=== PATIENT | male | born 1940 | race Caucasian/White ===

== ENCOUNTER 2017-04-21 13:21 | Outpatient (CLI) | payer MEDICARE | END 2017-04-21 13:22 | disposition EMS.NT | LOC: EMS 13:21 | PROVIDERS: ATTEND Surgery | DX: S91.332A Puncture wound without foreign body, left foot, initial encounter (principal); W26.0XXA Contact with knife, initial encounter; Y92.009 Unspecified place in unspecified non-institutional (private) residence as the place of occurrence of the external cause ==

== ENCOUNTER 2017-04-22 00:28 | Outpatient (CLI) | payer MEDICARE | END 2017-04-22 00:29 | disposition critical access hospital (66) | LOC: EMS 00:28 | PROVIDERS: ATTEND Surgery | DX: S91.312A Laceration without foreign body, left foot, initial encounter (principal); W26.0XXA Contact with knife, initial encounter; Z79.01 Long term (current) use of anticoagulants | CPT/HCPCS: A0425; A0429 ==

== ENCOUNTER 2017-04-22 00:40 | Emergency (ER) | payer MEDICARE ==
--- NOTE | 2017-04-22 02:12 | ED Physician Documentation ---
PD HPI LOWER EXT INJURY - Stated complaint Stated Complaint: FOOT WOUND - Chief complaint Chief Complaint: Laceration - History obtained from History obtained from: Patient - History of Present Illness PD HPI LOW EXT INJURY LOCATION: Left Type of injury: Laceration Where injury occurred: Home Timing - onset: Enter time (15:00) Pain level now: 3 Associated symptoms: No: Weakness, Numbness, Tingling, Swelling Contributing factors: Anticoagulated Similar symptoms before: Has not had sx before Recently seen: Not recently seen - Additional information Additional information: patient dropped a knife this afternoon, approximately 3 PM, and it landed on his left foot (was only wearing a sock), causing a laceration to the dorsal surface of the foot. He is on coumadin and was chiefly concerned about the bleeding. He called 911, medics arrived and put a pressure dressing on the wound and patient was satisfied with this and thus did not come to ED for evaluation. Tonight, while walking around his house, he noted the bleeding started again and thus he comes to ED for evaluation. Review of Systems Musculoskeletal: reports: Extremity pain (mild discomfort at laceration site). denies: Joint pain, Extremity swelling Neurologic: denies: Focal weakness, Numbness PD PAST MEDICAL HISTORY - Past Medical History Past Medical History: Yes Cardiovascular: Hypertension, High cholesterol, Deep vein thrombosis, [place] - Past Surgical History Past Surgical History: Yes Cardiovascular: Coronary stent - Present Medications Home Medications: Ambulatory Orders Medication Instructions Recorded Confirmed Aspirin 1 tab PO DAILY 04/22/17 04/22/17 Atorvastatin [Lipitor] 2.5 mg PO DAILY 04/22/17 04/22/17 Warfarin Sodium [Coumadin] 1 tab PO DAILY 04/22/17 04/22/17 - Allergies Allergies/Adverse Reactions: Allergies Allergy/AdvReac Type Severity Reaction Status Date / Time No Known Drug Allergies Allergy Verified 04/22/17 00:44 - Social History Does the pt smoke?: No Smoking Status: Never smoker Does the pt have substance abuse?: No - Immunizations Immunizations are current?: No Immunizations: TDAP >10years/unknown - POLST Patient has POLST: No PD ED PE NORMAL - Vitals Vital signs reviewed: Yes - General General: Alert and oriented X 3, No acute distress, Well developed/nourished - Derm Derm: Normal color, Warm and dry - Extremities Extremities: No tenderness to palpate, Normal ROM s pain, No edema - Neuro Neuro: No motor deficit, No sensory deficit PD ED PE EXPANDED - Extremities Feet visual: 1 - laceration (1cm length laceration, no active bleeding. no erythema, no bony tenderness. LTS intact in toes with brisk capillary refill in toes) Results - Vitals Vitals: Vital Signs - 24 hr 04/22/17 04/22/17 00:40 02:40 Temperature 36.3 C L 36.8 C Heart Rate 69 71 Respiratory 18 18 Rate Blood Pressure 163/93 H 148/90 H O2 Saturation 97 97 Oxygen O2 Source Room air PD MEDICAL DECISION MAKING - ED course Complexity details: considered differential, d/w patient ED course: Wound irrigated by director of technology, then dried and dressed with gelfoam, gauze, and Coban. After approximately 45 minutes, I took this dressing down to inspect the wound and found no active bleeding. I advised patient of my recommendation, which is no further treatment necessary, change dressing once per day but more frequently if bleeds through the dressing, and to expect some degree of bleeding over the next 1-2 days. He was provided a post-op shoe, so as to minimize bending of the foot, which would put tension on the wound edges and potentiate rebleeding. Departure - Departure Disposition: 01 Home, Self Care Clinical Impression: Laceration Condition: Good Instructions: ED Laceration Foot, ED Laceration Old Not Sutr Discharge Date/Time: 04/22/17 02:45
[2017-04-22 02:44] VITALS: BP 148/90
== END 2017-04-22 02:45 | disposition home or self-care (01) ==
LOC: ED 00:40
DX: S91.312A Laceration without foreign body, left foot, initial encounter (principal); W26.0XXA Contact with knife, initial encounter; Y92.019 Unspecified place in single-family (private) house as the place of occurrence of the external cause; I10 Essential (primary) hypertension; Z86.718 Personal history of other venous thrombosis and embolism; Z79.01 Long term (current) use of anticoagulants; E78.00 Pure hypercholesterolemia, unspecified; I25.2 Old myocardial infarction; Z79.82 Long term (current) use of aspirin
CPT/HCPCS: 99282; 99284

== ENCOUNTER 2017-08-06 11:01 | Emergency (ER) | payer MEDICARE ==
[2017-08-06 11:10] VITALS: BP 139/80
--- NOTE | 2017-08-06 11:51 | ED Physician Documentation ---
History of Present Illness - Stated complaint Stated Complaint: ABD PX - Chief complaint Chief Complaint: Abd Pain - Additonal information Additional information: hx from pt 77 male on coumadin for prior PEs hx diverticulosis - and c diff 2/2 antibiotics for same LLQ pain no fever NVD or urinary sx no scrotal pain or swelling no prior surgery Review of Systems Constitutional: denies: Fever Cardiac: denies: Chest pain / pressure Respiratory: denies: Dyspnea GI: reports: Abdominal Pain. denies: Nausea, Vomiting, Diarrhea : denies: Dysuria Endocrine: reports: Easy bruising / bleeding Immunocompromised: denies: Immunocompromised PD PAST MEDICAL HISTORY - Past Medical History Cardiovascular: Hypertension, High cholesterol, Deep vein thrombosis, [place] - Past Surgical History Past Surgical History: Yes Cardiovascular: Coronary stent - Present Medications Home Medications: Ambulatory Orders Medication Instructions Recorded Confirmed Aspirin 1 tab PO DAILY 04/22/17 04/22/17 Atorvastatin [Lipitor] 2.5 mg PO DAILY 04/22/17 04/22/17 Warfarin Sodium [Coumadin] 1 tab PO DAILY 04/22/17 04/22/17 Amox/Clav 875/125 [Augmentin] 1 each PO Q12H #20 tablet 08/06/17 Docusate Sodium 250Mg Capsule 250 mg PO DAILY #14 capsule 08/06/17 [Colace 250Mg Capsule] Saccharomyces Boulardii [Florastor] 500 mg PO BID #40 capsule 08/06/17 - Allergies Allergies/Adverse Reactions: Allergies Allergy/AdvReac Type Severity Reaction Status Date / Time No Known Drug Allergies Allergy Verified 08/06/17 11:10 - Social History Does the pt smoke?: No Smoking Status: Never smoker Does the pt have substance abuse?: No - Immunizations Immunizations are current?: No Immunizations: TDAP >10years/unknown - POLST Patient has POLST: No PD ED PE NORMAL - Vitals Vital signs reviewed: Yes - Neck Neck: Supple, no meningeal sign - Cardiac Cardiac: RRR - Respiratory Respiratory: No respiratory distress - Abdomen Abdomen: Soft, Other (TTP LLQ without rebound or guarding) - Derm Derm: Normal color - Neuro Neuro: Alert and oriented X 3 Results - Vitals Vitals: Vital Signs - 24 hr 08/06/17 11:06 Temperature 36.4 C L Heart Rate 74 Respiratory 14 Rate Blood Pressure 139/80 H O2 Saturation 96 Oxygen O2 Source Room air - Labs Labs: Laboratory Tests 08/06/17 08/06/17 08/06/17 12:25 12:56 12:56 WBC 8.7 RBC 4.57 L Hgb 14.1 Hct 41.1 L MCV 89.9 MCH 30.9 MCHC 34.4 RDW 13.6 Plt Count 207 MPV 7.8 Neut # 6.5 Lymph # 1.3 L [place] # 0.6 Eos # 0.2 Baso # 0.0 Absolute Nucleated RBC 0.01 Nucleated RBC % 0.1 PT INR Sodium 134 L Potassium 4.3 Chloride 100 L Carbon Dioxide 25 Anion Gap 9.0 BUN 13 Creatinine 0.8 Estimated GFR (MDRD) 94 Glucose 109 H Calcium 9.0 Total Bilirubin 0.7 AST 18 ALT 11 Alkaline Phosphatase 70 Total Protein 7.2 Albumin 4.0 Globulin 3.2 Albumin/Globulin Ratio 1.3 Lipase 22 Urine Color YELLOW Urine Clarity CLEAR Urine pH 6.0 Ur Specific [place] 1.025 Urine Protein TRACE Urine Glucose (UA) NEGATIVE Urine Ketones TRACE Urine Occult Blood NEGATIVE Urine Nitrite NEGATIVE Urine Bilirubin NEGATIVE Urine Urobilinogen 0.2 (NORMAL) Ur Leukocyte Esterase NEGATIVE Ur Microscopic Review NOT INDICATED Urine Culture Comments NOT INDICATED 08/06/17 12:56 WBC RBC Hgb Hct MCV MCH MCHC RDW Plt Count MPV Neut # Lymph # [place] # Eos # Baso # Absolute Nucleated RBC Nucleated RBC % PT 23.8 H INR 2.2 H Sodium Potassium Chloride Carbon Dioxide Anion Gap BUN Creatinine Estimated GFR (MDRD) Glucose Calcium Total Bilirubin AST ALT Alkaline Phosphatase Total Protein Albumin Globulin Albumin/Globulin Ratio Lipase Urine Color Urine Clarity Urine pH Ur Specific [place] Urine Protein Urine Glucose (UA) Urine Ketones Urine Occult Blood Urine Nitrite Urine Bilirubin Urine Urobilinogen Ur Leukocyte Esterase Ur Microscopic Review Urine Culture Comments - Rads (name of study) CT AP Radiology: See rad report (acute divertic no perf or abscess) Departure - Departure Disposition: 01 Home, Self Care Clinical Impression: Diverticulitis of gastrointestinal tract Condition: Good Instructions: ED Diverticulitis Prescriptions: Amox/Clav 875/125 [Augmentin] 1 each PO Q12H #20 tablet Docusate Sodium 250Mg Capsule [Colace 250Mg Capsule] 250 mg PO DAILY #14 capsule Saccharomyces Boulardii [Florastor] 500 mg PO BID #40 capsule Comments: You do have diverticultitis again There is no abscess or perforation So it is reasonable to treat you as an outpatient I have prescribed antibiotics. And also prescribed a probiotic to try and prevent c - diff from occurring again You should also continue to eat your yogurt The colace is to keep your stools soft so you do not stress the infected colon Recommend a liquid diet for the next two days to rest the infected colon while it starts to heal. When you do start eating again avoid foods with sharp crunchy bits like nuts seeds popcorn and tortilla chips All antibiotics can increase your INR so please monitor that carefully Please follow up with your PMD for a recheck next week Return to the ER if worse
[2017-08-06 12:47] LABS: BILIRUBIN,URINE NEGATIVE (NEGATIVE); GLUCOSE, URINE (UA) NEGATIVE (NEGATIVE); KETONES,URINE (UA) TRACE mg/dL (NEGATIVE); LEUKOCYTE ESTERASE, URINE NEGATIVE (NEGATIVE); NITRITE,URINE NEGATIVE (NEGATIVE); OCCULT BLOOD,URINE NEGATIVE (NEGATIVE); PROTEIN,URINE TRACE mg/dL (NEGATIVE); UROBILINOGEN,URINE 0.2 (NORMAL) E.U./dL (NORMAL)
[2017-08-06 12:48] LABS: CLARITY,URINE CLEAR (CLEAR)
[2017-08-06 13:01] LABS: BASOPHILS % (AUTO) 0.5 %; EOSINOPHILS # (AUTO) 0.2 10^3/uL (0.0-0.7); EOSINOPHILS % (AUTO) 1.8 %; HGB - HEMOGLOBIN 14.1 g/dL (14.0-18.0); LYMPHOCYTES # (AUTO) 1.3 10^3/uL (1.5-3.5); LYMPHOCYTES % (AUTO) 15.2 %; MEAN CORPUSCULAR HEMOGLOBIN 30.9 pg (27.0-31.0); MEAN CORPUSCULAR HGB CONC 34.4 g/dL (32.0-36.0); MEAN CORPUSCULAR VOLUME 89.9 fL (80.0-94.0); MEAN PLATELET VOLUME 7.8 fL (7.4-11.4); MONOCYTES # (AUTO) 0.6 10^3/uL (0.0-1.0); MONOCYTES % (AUTO) 7.3 %; NEUTROPHILS # (AUTO) 6.5 10^3/uL (1.5-6.6); NEUTROPHILS % (AUTO) 75.2 %; PLT - PLATELET COUNT 207 10^3/uL (130-450); RED BLOOD COUNT 4.57 10^6/uL (4.70-6.10); RED CELL DISTRIBUTION WIDTH 13.6 % (12.0-15.0); WHITE BLOOD COUNT 8.7 x10^3/uL (4.8-10.8)
[2017-08-06 13:10] LABS: INR 2.2 (0.8-1.2); PT - PROTHROMBIN TIME 23.8 secs (9.9-12.6)
[2017-08-06 13:19] LABS: ALBUMIN/GLOBULIN RATIO 1.3 (1.0-2.2); BILIRUBIN,TOTAL 0.7 mg/dL (0.2-1.0); CREATININE 0.8 mg/dL (0.6-1.2); TOTAL PROTEIN 7.2 g/dL (6.7-8.2)
--- NOTE | 2017-08-06 14:21 | CT Report ---
EXAM: CT ABDOMEN AND PELVIS EXAM DATE: 08/06/2017 02:08 PM. CLINICAL HISTORY: LLQ pain hx divertic. COMPARISONS: None. TECHNIQUE: Routine helical CT imaging was performed through the abdomen and pelvis. IV contrast: None . Enteric contrast: No. Reconstructions: Coronal and sagittal. In accordance with CT protocol optimization, one or more of the following dose reduction techniques w ere utilized for this exam: automated exposure control, adjustment of mA and/or KV based on patient s ize, or use of iterative reconstructive technique. FINDINGS: Lung Bases: Unremarkable. Liver: Small cyst or hemangioma. Otherwise unremarkable. Gallbladder/Bile Ducts: Unremarkable. Spleen: Normal. Pancreas: Normal. Adrenal Glands: Normal. Kidneys: Probable small cysts on the right. Duplex collecting system on the left. Otherwise unremarka ble. No stone or hydronephrosis. Peritoneal Cavity/Bowel: Moderate to marked colonic diverticulosis with wall thickening in the distal descending colon and haziness of surrounding fat. No free fluid, free air, lymphadenopathy, or bowel dilation. The appendix is well visualized and normal. Pelvic Organs: Normal. The bladder and visualized pelvic organs are within normal limits. Vasculature: No aneurysms or other significant abnormality. Bones: Degenerative changes. Partial ankylosis of SI joints. Other: None. IMPRESSION: 1. Moderate to marked diverticulosis with acute diverticulitis. 2. Other chronic or incidental findings. [facility] Referring Provider Line: [phone] SITE ID: [id number]
== END 2017-08-06 14:41 | disposition home or self-care (01) ==
LOC: ED 11:01
DX: K57.92 Diverticulitis of intestine, part unspecified, without perforation or abscess without bleeding (principal); I25.2 Old myocardial infarction; E78.00 Pure hypercholesterolemia, unspecified; I10 Essential (primary) hypertension; Z86.718 Personal history of other venous thrombosis and embolism; Z79.01 Long term (current) use of anticoagulants; Z79.82 Long term (current) use of aspirin; Z95.5 Presence of coronary angioplasty implant and graft
CPT/HCPCS: 36415; 74176; 80053; 81001; 81003; 83690; 85025; 85610; 87086; 99283; 99284

== ENCOUNTER 2017-08-17 11:06 | Emergency (ER) | payer MEDICARE ==
--- NOTE | 2017-08-17 12:21 | ED Physician Documentation ---
PD HPI FOCAL NEURO - Stated complaint Stated Complaint: DIZZINESS/VERTIGO - Chief complaint Chief Complaint: Neuro - History obtained from History obtained from: Patient - History of Present Illness Timing - onset: Today (He was brushing his 's hair and suddenly felt like the room was spinning. It started at 9:15am and lasted 10 minutes, it has not recurred. There is no associated weakness, numbness, or tingling except for long -standing weakness in the right foot. That has not changed. He has been walking around okay since then.) - Additional information Additional information: Has history of DVT and is maintained on warfarin. But he has not been particularly compliant with this lately. Review of Systems Constitutional: denies: Fever, Chills Cardiac: denies: Chest pain / pressure, Palpitations Respiratory: denies: Dyspnea, Cough GI: denies: Abdominal Pain PD PAST MEDICAL HISTORY - Past Medical History Past Medical History: Yes Cardiovascular: Hypertension, High cholesterol, Deep vein thrombosis, [place] - Past Surgical History Past Surgical History: Yes Cardiovascular: Coronary stent - Present Medications Home Medications: Ambulatory Orders Medication Instructions Recorded Confirmed Aspirin 1 tab PO DAILY 04/22/17 04/22/17 Atorvastatin [Lipitor] 2.5 mg PO DAILY 04/22/17 04/22/17 Warfarin Sodium [Coumadin] 1 tab PO DAILY 04/22/17 04/22/17 Amox/Clav 875/125 [Augmentin] 1 each PO Q12H #20 tablet 08/06/17 Docusate Sodium 250Mg Capsule 250 mg PO DAILY #14 capsule 08/06/17 [Colace 250Mg Capsule] Saccharomyces Boulardii [Florastor] 500 mg PO BID #40 capsule 08/06/17 - Allergies Allergies/Adverse Reactions: Allergies Allergy/AdvReac Type Severity Reaction Status Date / Time No Known Drug Allergies Allergy Verified 08/17/17 11:14 - Social History Does the pt smoke?: No Smoking Status: Never smoker Does the pt have substance abuse?: No - Immunizations Immunizations are current?: No Immunizations: TDAP >10years/unknown - POLST Patient has POLST: No PD ED PE NORMAL - Vitals Vital signs reviewed: Yes - General General: Alert and oriented X 3, No acute distress - HEENT HEENT: PERRL, EOMI - Neck Neck: Supple, no meningeal sign, No bony TTP - Cardiac Cardiac: RRR, No murmur - Respiratory Respiratory: No respiratory distress, Clear bilaterally - Neuro Neuro: Alert and oriented X 3 Eye Opening: Spontaneous Motor: Obeys Commands Verbal: Oriented GCS Score: 15 - Psych Psych: Normal mood, Normal affect NIHSS - Time Time: 12:20 - Level of Consciousness Level of consciousness: (0) Alert, Keenly responsive LOC Questions: (0) Answers both Q's correct LOC Commands: (0) Performs both correctly - Gaze Best Gaze: (0) Normal - Visual Visual: (0) No loss - Facial Palsy Facial Palsy: (0) Normal, symmetrical movement - Motor Arms (both separate) Motor Arm (right): (0) No drift Motor Arm (left): (0) No drift - Motor Legs (both separate) Motor Leg (right): (0) No drift Motor Leg (left): (0) No drift - Limb Ataxia Limb Ataxia: (0) Absent - Sensory Sensory: (0) Normal - Best Language Best Language: (0) No aphasia - Dysarthria Dysarthria: (0) Normal - Extinction and Inattention (formally neg Extinction and inattention: (0) No abnormality - Total Score/Results Total Score/Result: 0 Results - Vitals Vitals: Vital Signs - 24 hr 08/17/17 08/17/17 11:12 12:52 Temperature 36.7 C Heart Rate 65 68 Respiratory 18 16 Rate Blood Pressure 155/92 H 150/84 H O2 Saturation 97 97 Oxygen O2 Source Room air - EKG (time done) 1114 Rate: Rate (enter#) (67) Rhythm: NSR [place]: Normal Intervals: Normal LA QRS: Normal Ischemia: Normal ST segments Computer interpretation: Agree with computer - Labs Labs: Laboratory Tests 08/17/17 12:30 Whole Blood INR < 1.0 - Rads (name of study) CT Head Radiology: EMP read contemporaneously (Atrophy NAD) PD MEDICAL DECISION MAKING - ED course ED course: 77-year-old gentleman who is chronically anticoagulated with warfarin for history of DVT presents with fleeting vertigo that started while turning his head that is gone most consistent with resolved BPPV. Given his history of anticoagulation and head CT was ordered but he notes that he has not been compliant with his anticoagulation lately and his INR is significantly subtherapeutic. Departure - Departure Disposition: Home, Self Care Clinical Impression: Subtherapeutic anticoagulation BPPV (benign paroxysmal positional vertigo) Qualifiers: Laterality: unspecified laterality Qualified Code(s): H81.10 - Benign paroxysmal vertigo, unspecified ear Condition: Good Record reviewed to determine appropriate education?: Yes Instructions: Vertigo Paroxysmal Positional Comments: Call your doctor to arrange a follow-up appointment, make the next available appointment. In the interim, return anytime if worse or if new symptoms develop. Your blood pressure was elevated today on check into the emergency department. This does not mean that you have hypertension, it is a common phenomenon to come to the emergency department and have elevated blood pressure. I recommend that you see your primary care physician within the week to have it rechecked when you are feeling better.
[2017-08-17 12:54] VITALS: BP 150/84
--- NOTE | 2017-08-17 13:01 | CT Preliminary Report ---
Exam: CT HEAD W/O IMPRESSION: Generalized age-related cortical atrophic changes without evidence of acute intracranial abnormality. [facility] SITE ID: [id number]
--- NOTE | 2017-08-17 13:01 | CT Report ---
EXAM: CT HEAD EXAM DATE: 08/17/2017 12:50 PM. CLINICAL HISTORY: Vertigo, anticoagulated. COMPARISON: None. TECHNIQUE: Multiaxial CT images were obtained from the foramen magnum to the vertex. Reformats: Coron al. IV contrast: None. In accordance with CT protocol optimization, one or more of the following dose reduction techniques w ere utilized for this exam: automated exposure control, adjustment of mA and/or KV based on patient s ize, or use of iterative reconstructive technique. FINDINGS: Parenchyma: No intraparenchymal hemorrhage. No evidence of mass, midline shift, or CT findings of acu te infarction. Nicholas-white differentiation is distinct. Diffuse chronic microangiopathic white matter changes are evident. Extraaxial Spaces: Normal for age. No subdural or epidural collections identified. Ventricles: The ventricles and cortical sulci are enlarged, consistent with age-related tissue loss. Sinuses and orbits: Imaged paranasal sinuses, orbits, and mastoids show no significant abnormality. Bones: No evidence of fracture or calvarial defect. Other: None. IMPRESSION: Generalized age-related cortical atrophic changes without evidence of acute intracranial abnormality. [facility] Referring Provider Line: [phone] SITE ID: [id number]
== END 2017-08-17 13:17 | disposition home or self-care (01) ==
LOC: ED 11:06
DX: H81.10 Benign paroxysmal vertigo, unspecified ear (principal); R79.1 Abnormal coagulation profile; T45.516A Underdosing of anticoagulants, initial encounter; Z91.128 Patient's intentional underdosing of medication regimen for other reason; Z79.01 Long term (current) use of anticoagulants; Z86.718 Personal history of other venous thrombosis and embolism; I10 Essential (primary) hypertension; Z79.82 Long term (current) use of aspirin
CPT/HCPCS: 70450; 85610; 93005; 99283; 99284

== ENCOUNTER 2020-08-15 15:30 | Outpatient (CLI) | payer MEDICARE ==
[2020-08-15 15:47] LABS: HCT - HEMATOCRIT 41.2 % (42.0-52.0); HGB - HEMOGLOBIN 13.9 g/dL (14.0-18.0); MEAN CORPUSCULAR HEMOGLOBIN 30.8 pg (27.0-31.0); MEAN CORPUSCULAR HGB CONC 33.7 g/dL (32.0-36.0); MEAN CORPUSCULAR VOLUME 91.2 fL (80.0-94.0); MEAN PLATELET VOLUME 9.5 fL (7.4-11.4); RED BLOOD COUNT 4.52 10^6/uL (4.70-6.10); RED CELL DISTRIBUTION WIDTH 12.5 % (12.0-15.0)
[2020-08-15 16:06] LABS: ALBUMIN 4.1 g/dL (3.2-5.5); ALBUMIN/GLOBULIN RATIO 1.5 (1.0-2.2); ALKALINE PHOSPHATASE 59 IU/L (42-121); ALT ALANINE AMINOTRANSFERASE 14 IU/L (10-60); AST ASPARTATE AMINOTRANSFERASE 22 IU/L (10-42); BILIRUBIN,TOTAL 0.6 mg/dL (0.2-1.0); BUN - BLOOD UREA NITROGEN 20 mg/dL (6-20); CALCIUM 9.2 mg/dL (8.5-10.3); CARBON DIOXIDE - CO2 27 mmol/L (21-32); CHLORIDE 103 mmol/L (101-111); CHOL/HDL RATIO 3.1 (<5.0); CHOLESTEROL 182 mg/dL; CREATININE 0.9 mg/dL (0.6-1.2); GFR - MDRD 82 (>89); GLUCOSE 129 mg/dL (70-100); HDL CHOLESTEROL 59 mg/dL; LDL CHOLESTEROL,CALCULATED 84 mg/dL; LDL/HDL RATIO 1.4 (<3.6); SODIUM 138 mmol/L (135-145); TOTAL PROTEIN 6.9 g/dL (6.7-8.2); TRIGLYCERIDES 195 mg/dL; VLDL CHOLESTEROL 39 mg/dL
[2020-08-15 16:18] LABS: THYROID STIMULATING HORMONE 0.37 uIU/mL (0.34-5.60)
[2020-08-15 20:59] LABS: ESTIMATED AVERAGE GLUCOSE 108 mg/dL (70-100); HEMOGLOBIN A1c% 5.4 % (4.27-6.07)
[2020-08-16 11:07] LABS: HEPATITIS C ANTIBODY NON-REACTIVE (NON-REACTIVE)
== END 2020-08-15 15:31 | disposition home or self-care (01) ==
LOC: LAB 15:30
PROVIDERS: ATTEND Family Medicine
DX: E78.2 Mixed hyperlipidemia (principal); I82.409 Acute embolism and thrombosis of unspecified deep veins of unspecified lower extremity; R79.89 Other specified abnormal findings of blood chemistry; R73.01 Impaired fasting glucose; Z11.59 Encounter for screening for other viral diseases; I10 Essential (primary) hypertension
CPT/HCPCS: 36415; 80053; 80061; 83036; 83721; 84443; 85027; 86803